=== PATIENT | male | born 1955 | race Two or more races ===

== ENCOUNTER 2021-12-22 09:04 | Outpatient (CLI) | payer OTHER | END 2021-12-22 09:10 | disposition home or self-care (01) | LOC: RAD 09:04 | PROVIDERS: ATTEND General Practice | DX: J44.0 Chronic obstructive pulmonary disease with (acute) lower respiratory infection (principal) ==

== ENCOUNTER → 2024-07-22 | Outpatient (CLI) | payer OTHER | END | disposition home or self-care (01) | LOC: RAD 13:01 | PROVIDERS: ATTEND General Practice | DX: G56.01 Carpal tunnel syndrome, right upper limb (principal) ==